=== PATIENT | male | born 1940 | race African-American/Black ===

== ENCOUNTER 2022-06-06 21:06 | Emergency (ER) | payer OTHER ==
[~2022-06-06] VITALS: Ht 182.9 cm; Wt 90.0 kg
[2022-06-06 22:20] LABS: HEMATOCRIT. 31.1 % (42.0-52.0); HEMOGLOBIN. 10.5 g/dL (14.0-18.0); MEAN CORPUSCULAR HEMOGLOBIN 33.5 pg (28.0-32.0); MEAN CORPUSCULAR VOLUME 99.5 fL (80.0-94.0); MEAN PLATELET VOLUME 8.4 fl (7.4-10.4); PLATELET 136 x1000/uL (130-400); RED BLOOD CELL COUNT 3.12 mill/uL (4.7-6.1)
[2022-06-06 22:25] LABS: CHLORIDE 106 mEq/L (98-107)
[2022-06-06 22:41] LABS: ETHANOL BLOOD < 10 mg/dL
[2022-06-06] MEDS ORDERED: SODIUM CHLORIDE 0.9% 1,000 ML IV ONE (23:15)
[2022-06-07 01:22] LABS: PLATELET ESTIMATE NORMAL
[2022-06-07 03:00] VITALS: BP 125/74
== END 2022-06-07 03:42 | disposition short-term general hospital (02) ==
LOC: ER 21:06
DX: R53.1 Weakness (principal); N18.6 End stage renal disease
CPT/HCPCS: 36415; 71045; 80053; 80320; 82140; 84443; 84484; 85025; 93005; 96360; 99285; G0480

== ENCOUNTER 2024-01-05 19:02 | Inpatient (IN) | payer OTHER ==
[~2024-01-05] VITALS: Ht 182.9 cm; Wt 113.4 kg
[2024-01-05 19:13] VITALS: O2SAT 93
[2024-01-05 20:42] LABS: CLARITY URINE TURBID (CLEAR); COLOR URINE RED (YELLOW); GLUCOSE URINE NEGATIVE (NEGATIVE); KETONES URINE NEGATIVE (NEGATIVE); LEUKOCYTE ESTERASE URINE 2+ (NEGATIVE); NITRITE URINE POSITIVE (NEGATIVE); OCCULT BLOOD URINE 2+ (NEGATIVE); PROTEIN URINE 2+ (NEGATIVE); SPECIFIC GRAVITY URINE 1.009 (1.005-1.030); UROBILINOGEN URINE 0.2 E.U./dL (0.2-1.0)
[2024-01-05] MEDS: SODIUM CHLORIDE 0.9% 1,000 ML IV ONE (20:48)
[2024-01-05 20:56] LABS: *AMPHETAMINES SCREEN URINE NEGATIVE (NEGATIVE); *BARBITURATES SCREEN URINE NEGATIVE (NEGATIVE); *BENZODIAZEPINES SCREEN URINE NEGATIVE (NEGATIVE); *COCAINE SCREEN URINE NEGATIVE (NEGATIVE); CANNABINOID URINE SCREEN NEGATIVE (NEGATIVE); ECSTASY MDMA SCREEN URINE NEGATIVE (NEGATIVE); METHADONE URINE SCREEN Neg (NEGATIVE); OPIATES URINE SCREEN PRESUMPTIVE POSITIVE (NEGATIVE); PHENCYCLIDINE URINE SCREEN NEGATIVE (NEGATIVE)
[2024-01-05 21:11] LABS: BACTERIA URINE 2+; RBC URINE TNTC /hpf (0-2); SQUAMOUS EPITHELIAL CELL URINE FEW /lpf (RARE/1+)
[2024-01-05 21:23] LABS: HEMATOCRIT. 38.3 % (42.0-52.0); HEMOGLOBIN. 12.5 g/dL (14.0-18.0); MEAN CORPUSCULAR HEMOGLOBIN 33.9 pg (28.0-32.0); MEAN CORPUSCULAR HGB CONC 32.7 g/dL (31.0-37.0); MEAN CORPUSCULAR VOLUME 103.6 fL (80.0-94.0); MEAN PLATELET VOLUME 9.5 fl (7.4-10.4); PLATELET 84 x1000/uL (130-400); RED CELL DISTRIBUTION WIDTH 13.8 % (11.6-14.6)
[2024-01-05 21:24] LABS: DIFFERENTIAL COMMENT 1
[2024-01-05 21:35] LABS: PROTHROMBIN TIME 11.6 sec (9.6-11.0)
[2024-01-05 21:43] LABS: ALANINE AMINOTRANSFERASE 11 IU/L (10-49); ALBUMIN 3.5 g/dL (3.2-4.8); ASPARTATE AMINOTRANSFERASE 23 IU/L (<34); BILIRUBIN TOTAL 0.7 mg/dL (0.1-1.0); CALCIUM 7.6 mg/dL (8.7-10.4); CARBON DIOXIDE 19 mEq/L (21-32); CHLORIDE 110 mEq/L (98-107); CREATININE 1.8 mg/dL (0.6-1.3); GLUCOSE 73 mg/dL (70-105); PLATELET ESTIMATE DECREASED; POTASSIUM 3.1 mEq/L (3.5-5.1); PROTEIN TOTAL 6.2 g/dL (6.0-8.3); SODIUM 140 mEq/L (136-145); THYROID STIMULATING HORMONE 5.07 uIU/mL (0.55-4.78); UREA NITROGEN BLOOD 32 mg/dL (9-23)
[2024-01-05 21:45] LABS: ANISOCYTOSIS 1+
[2024-01-05 21:47] LABS: ETHANOL BLOOD < 10 mg/dL (<10); TROPONIN I HIGH SENSITIVITY 244 ng/L (3.0-53)
[2024-01-05] MEDS: CEFTRIAXONE 2GM/50ML 50 ML IV ONE (21:58)
[2024-01-05] MEDS: FUROSEMIDE 40MG/4ML VIAL IVP ONE (22:48)
[2024-01-06 00:15] LABS: AMMONIA < 17 uMol/L (<32)
[2024-01-06 00:29] LABS: LACTIC ACID 4.7 mmol/L (0.4-2.0); TROPONIN I HIGH SENSITIVITY 408 ng/L (3.0-53)
[2024-01-06] MEDS ORDERED: DOCUSATE SODIUM 100MG CAPSULE PO PRN (04:45)
[2024-01-06] MEDS ORDERED: ACETAMINOPHEN 325MG TABLET PO PRN ×2 (04:45)
[2024-01-06] MEDS ORDERED: VANCOMYCIN 1G PREMIX 200 ML IV SCH (04:45)
[2024-01-06] MEDS ORDERED: IPRATROPIUM/ALBUTEROL 0.5-3(2.5)MG/3ML NEB HHN PRN (04:45)
[2024-01-06] MEDS ORDERED: CLONIDINE 0.1MG TABLET PO PRN (04:45)
[2024-01-06] MEDS ORDERED: GUAIFENESIN 200MG/10ML SUGAR FREE UDC PO PRN (04:45)
[2024-01-06] MEDS ORDERED: ONDANSETRON HCL 4MG/2ML INJ IV PRN (04:45)
[2024-01-06] MEDS ORDERED: NITROGLYCERIN 0.4MG TABLET SL SL PRN (05:15)
[2024-01-06 05:30] LABS: TROPONIN I HIGH SENSITIVITY 333 ng/L (3.0-53)
[2024-01-06] MEDS: POTASSIUM CHLORIDE 20MEQ/PACKET PO NR (05:30)
[2024-01-06] MEDS: ACETAMINOPHEN 325MG TABLET PO NR (05:30)
[2024-01-06] MEDS: AMLODIPINE 5MG TABLET PO SCH (05:31)
[2024-01-06] MEDS: VANCOMYCIN 1.5GM/250ML IV NR (05:31)
[2024-01-06] MEDS: PIPERACILLIN/TAZO 3.375G/50ML IV NR (07:45)
[2024-01-06] MEDS ORDERED: CEFEPIME 2GM IN DEXT 5% 100ML IV SCH (08:00)
[2024-01-06] MEDS: MAGNESIUM 4 G PREMIX 100 ML IV ONE (08:27)
[2024-01-06] MEDS: POTASSIUM PHOSPHATE 30 MMOL in SODIUM CHLORIDE 0.9% 490 ML IV ONE (09:40)
[2024-01-06] MEDS: FUROSEMIDE 40MG/4ML VIAL IV SCH (09:45)
[2024-01-06] MEDS: PANTOPRAZOLE SODIUM 40 MG/VIAL IV SCH (09:45)
[2024-01-06] MEDS: ASPIRIN 81MG TABLET PO SCH (09:45)
[2024-01-06 10:24] VITALS: BP 101/38; PULSE 61; RESP 20; TEMP 97.8
[2024-01-06] MEDS: CEFEPIME 2GM/100ML 100 ML IV SCH (11:04)
[2024-01-06 13:14] LABS: CREATINE KINASE 1826 IU/L (46-171); CREATINE KINASE MB FRACTION 22.2 ng/mL (0.5-3.6); IRON 11 ug/dL (65-175); TOTAL IRON BINDING CAPACITY 278 ug/dl (250-425)
[2024-01-06 13:17] LABS: FERRITIN 298 ng/mL (22-322); FOLIC ACID (FOLATE) SERUM 6.15 ng/mL (>5.38)
[2024-01-06 13:19] LABS: VITAMIN B12 SERUM > 2000 pg/mL (211-911)
[2024-01-06 13:30] LABS: TROPONIN I HIGH SENSITIVITY 362 ng/L (3.0-53)
[2024-01-06] MEDS ORDERED: PIPERACILLIN/TAZO 3.375G/50ML 50 ML IV SCH (14:00)
[2024-01-06 16:00] VITALS: BP 113/49; PULSE 69; RESP 20; TEMP 97.5
[2024-01-06 20:29] LABS: CREATINE KINASE MB FRACTION 17.8 ng/mL (0.5-3.6)
[2024-01-06] MEDS: ATORVASTATIN CALCIUM 40MG TABLET PO SCH (20:46)
== END 2024-01-06 22:38 | disposition short-term general hospital (02) | DRG 698 ==
LOC: ER 19:02 → 7WST 01-06 08:47
PROVIDERS: ADMIT Internal Medicine; ATTEND Internal Medicine
PROC: 0T2BX0Z Change Drainage Device in Bladder, External Approach (ICD-10-PCS; principal; 2024-01-06)
DX: T83.038A Leakage of other urinary catheter, initial encounter (principal); A41.9 Sepsis, unspecified organism; G92.8 Other toxic encephalopathy; I21.A1 Myocardial infarction type 2; N17.9 Acute kidney failure, unspecified; N39.0 Urinary tract infection, site not specified; Z20.822 Contact with and (suspected) exposure to COVID-19; D69.6 Thrombocytopenia, unspecified; E83.39 Other disorders of phosphorus metabolism; E83.42 Hypomagnesemia; E87.6 Hypokalemia; I11.0 Hypertensive heart disease with heart failure; I50.9 Heart failure, unspecified; Z79.899 Other long term (current) drug therapy; Y73.8 Miscellaneous gastroenterology and urology devices associated with adverse incidents, not elsewhere classified; Y92.89 Other specified places as the place of occurrence of the external cause
CPT/HCPCS: 36415; 71045; 76700; 80053; 80305; 80320; 81003; 82140; 82550; 82553; 82607; 82728; 82746; 83540; 83550; 83605; 83735; 83880; 84100; 84145; 84153; 84443; 84484; 85025; 85379; 87077; 87186; 87426; 93005; 93306; 93970; 99291; C9113; J0692; J0696; J1940; J2543; J3370; J3475; J3490; J7030; J7040; G0480